=== PATIENT | male | born 2000 ===

== ENCOUNTER 2025-01-08 18:57 | Emergency (ER) | payer OTHER, SELFPAY ==
[2025-01-08 19:01] VITALS: BP 135/80; PULSE 68; RESP 18; TEMP 36.9; O2SAT 100; BMI 26.2
--- NOTE | 2025-01-08 19:13 | DI.CT.S_ITS ---
PROCEDURE: CT HEAD/BRAIN WO CON INDICATIONS: headaches, concussion 11/22 TECHNIQUE: Noncontrast 4.5 mm thick angled axial sections acquired from the foramen magnum to the vertex, with coronal and sagittal reformats. For radiation dose reduction, the following was used: automated exposure control, adjustment of mA and/or kV according to patient size. COMPARISON: None. FINDINGS: Image quality: Diagnostic. CSF spaces: Basal cisterns are patent. No extra-axial fluid collections. Ventricles are normal in size and shape. Brain: No midline shift. No intracranial mass effect or hemorrhage. Frausto-white matter interface is normal. Skull and face: Calvarium and visualized facial bones are intact, without suspicious lesions. Sinuses: Visualized sinuses and mastoids are clear. IMPRESSION: No acute intracranial pathology. Dictated by: Shankar Claudio M.D. on 01/08/2025 at 20:06 Approved by: Shankar Claudio M.D. on 01/08/2025 at 20:08
[2025-01-08 22:41] VITALS: BP 144/92; PULSE 66; RESP 17; O2SAT 100
--- NOTE | 2025-01-08 23:42 | ED_ITS ---
HPI - Headache General Chief Complaint: Headache Stated Complaint: Head injury [id number],headaches,HBP, Altered Vision Time Seen by Provider: 01/08/25 22:42 Mode of arrival: Ambulatory History of Present Illness HPI Narrative: 25-year-old male reports head injury at his work [employer] in [facility] on 11/22/2024, when some kind of 70 lb estimated weight hitch fell a top the right side of his head. No loss of consciousness. Since that time he reports persisting headaches, not responsive to paracetamol (acetaminophen). He reports problems with elevated blood pressures. He has not sought evaluation from his regular doctor in [place] Dr. Hopper, he has not seen any neurologist, not apparently had any specific follow up from the injury. He is here requesting L and I forms to be filled out in the emergency department 6-7 weeks from the event. No focal weakness to face arm or leg. No focal numbness to face arm or leg. Related Data Home Medications Medication Instructions Recorded Confirmed Blood pressure med PO 01/08/25 01/08/25 Allergies Allergy/AdvReac Type Severity Reaction Status Date / Time No Known Drug Allergies Allergy Verified 01/08/25 19:01 Patient History Social History Smoking Status: Never smoker Smoking Status: Never smoker Exam Narrative Exam Narrative: GENERAL: Well-developed patient, in mild distress. HEAD: Atraumatic. Normocephalic. No scalp injuries obvious. No crepitance to the top of head. Moves neck well. EYES: Pupils equal round and reactive. Extraocular motions intact. No scleral icterus. No injection or drainage. ENT: Nose without bleeding, purulent drainage. Throat without erythema, tonsillar hypertrophy or exudate. Airway patent. NECK: Trachea midline. Non tender CARDIOVASCULAR: Regular rate and rhythm without murmurs, gallops, or rubs. RESPIRATORY: Clear to auscultation. Breath sounds equal bilaterally. No wheezes, rales, or rhonchi. GASTROINTESTINAL: Abdomen soft, non-tender, nondistended. EXTREMITIES: No edema or joint tenderness. BACK: Nontender without deformity or crepitance. No flank tenderness. NEURO: AOx3. Cranial nerves intact as tested. Motor function 5/5 upper extremities, 5/5 lower extremities. [id number] testing normal. Sensation intact to light touch bilaterally. SKIN: No rash or erythema of visible areas Initial Vital Signs Initial Vital Signs: Vital Signs Temperature 98.4 F 01/08/25 19:01 Pulse Rate 68 01/08/25 19:01 Respiratory Rate 18 01/08/25 19:01 Blood Pressure 135/80 01/08/25 19:01 Pulse Oximetry 100 01/08/25 19:01 Oxygen Delivery Method Room Air 01/08/25 19:01 Course Orders Ordered: ED Orders 01/08/25 19:13 CT head/brain wo con Stat Vital Signs Vital signs: Vital Signs - 8 hr 01/08/25 19:01 01/08/25 22:41 01/08/25 22:41 Temperature 98.4 F Pulse Rate 68 66 Respiratory Rate 18 17 Blood Pressure 135/80 144/92 H Pulse Oximetry 100 100 Oxygen Delivery Method Room Air Room Air 01/09/25 00:26 01/09/25 00:26 Temperature Pulse Rate 71 Respiratory Rate 17 Blood Pressure 149/91 H Pulse Oximetry 100 Oxygen Delivery Method Room Air MDM - Headache Imaging Data CT scan - head: Radiologist's Impression: Close Head CT (Signed) Call,Shankar - 01/08/25 Launch?[place] [address] CT Scan Report Signed Patient: Johann Larsen MR#: [id number] : 2000 Acct:[id number] Age/Sex: 25 / M Date of Service: 01/08/25 Loc: ED Accession Number: [id number] Procedure: CT head/brain wo con Ordering Provider: Destin Silva MD PROCEDURE: CT HEAD/BRAIN WO CON INDICATIONS: headaches, concussion 11/22 TECHNIQUE: Noncontrast 4.5 mm thick angled axial sections acquired from the foramen magnum to the vertex, with coronal and sagittal reformats. For radiation dose reduction, the following was used: automated exposure control, adjustment of mA and/or kV according to patient size. COMPARISON: None. FINDINGS: Image quality: Diagnostic. CSF spaces: Basal cisterns are patent. No extra-axial fluid collections. Ventricles are normal in size and shape. Brain: No midline shift. No intracranial mass effect or hemorrhage. Frausto- white matter interface is normal. Skull and face: Calvarium and visualized facial bones are intact, without suspicious lesions. Sinuses: Visualized sinuses and mastoids are clear. IMPRESSION: No acute intracranial pathology. Dictated by: Shankar Claudio M.D. on 01/08/2025 at 20:06 Approved by: Shankar Claudio M.D. 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 No loss of consciousness. Ongoing headaches. Concerns about elevated blood pressure. Blood pressure here measured 144/92. He is taking some kind of Pashto blood pressure medication. Otherwise taking paracetamol/acetaminophen for headache. CT head ordered from triage. CT head noncontrast, no acute changes. See radiology report. L and I form filled out, form [id number]. Advised to follow up with his [place] based PCP for ongoing headaches present since the reported head trauma event 6-7 weeks ago. Discharge Plan Departure Patient Disposition: Home Clinical Impression: Headache Instructions: DI for Headache Activity Restrictions/Additional Instructions: Ongoing headaches after reported injury of heavy 70 lb object falling on top of head on 11/22/[address] Requests for L and I forms to be filled out, these were filled out, form [id number]. This is your 1st visit from the remote trauma event 6-7 weeks ago. You have a primary care provider in [place] but apparently have not seen your primary care provider for these ongoing problems since the event. CT scan head done tonight, no acute changes of the brain noted. Posttraumatic headaches can be managed by primary care providers in follow up, sometimes they are managed by neurologists. Follow up with your regular provider for further management of your ongoing headaches. Follow up with your primary care provider for further management of any blood pressure issues. No emergency medical condition was identified here today in the emergency department. Follow up with your primary care provider [place] for ongoing issues above. Prescriptions: No Action Blood pressure med PO Patient Comments: from [facility] Referrals: Bridget,DoctorMD [Primary Care Provider] - Stand Alone Forms: Patient Portal/API/Survey
[2025-01-09 00:26] VITALS: BP 149/91; PULSE 71; RESP 17; O2SAT 100
== END 2025-01-09 00:33 | disposition home or self-care (01) ==
PROVIDERS: Emergency Provider Emergency Medicine
DX: R51.9 Headache, unspecified (principal); R03.0 Elevated blood-pressure reading, without diagnosis of hypertension; Y99.0 Civilian activity done for income or pay
CPT/HCPCS: 70450; 99282; 99284